=== PATIENT | female | born 1970 | race Caucasian/White ===

== ENCOUNTER 2018-12-08 14:51 | Inpatient (IN) | payer OTHER ==
[2018-12-08 17:15] VITALS: BMI 28.0
--- NOTE | 2018-12-08 18:30 | HP ---
CIWA Score Nausea/Vomitin Muscle Tremors: 1-None Visible, but [place] Anxiety: 3 Agitation: 2 Paroxysmal Sweats: 1-Minimal Palms Moist Orientation: 1-Uncertain about Date Tacttile Disturbances: 2-Mild Itch/Numbness/Burn Auditory Disturbances: 1-Very Mild Visual Disturbances: 2-Mild Sensitivity Headache: 1-Very Mild CIWA-Ar Total Score: 16 - Admission Criteria OASAS Guidelines: Admission for Medically Managed Detox: Requires at least one of the followin. CIWA greater than 12 2. Seizures within the past 24 hours 3. Delirium tremens within the past 24 hours 4. Hallucinations within the past 24 hours 5. Acute intervention needed for co occurring medical disorder 6. Acute intervention needed for co occurring psychiatric disorder 7. Severe withdrawal that cannot be handled at a lower level of care (continued vomiting, continued diarrhea, abnormal vital signs) requiring intravenous medication and/or fluids 8. Admission ROS [facility] Chief Complaint: Withdrawal symptoms Allergies/Adverse Reactions: Allergies Allergy/AdvReac Type Severity Reaction Status Date / Time aspirin AdvReac Vomiting Verified 12/08/18 17:05 ciprofloxacin AdvReac Hives Verified 12/08/18 17:06 gluten AdvReac Nausea Verified 12/08/18 17:06 History of Present Illness: 48 y.o. woman with an extensive history of alcohol dependence is here seeking detox. She reports she completed detox at other facilities with her last admission being in October, at [facility]. Pt. was at [facility] ER on 12/07/18 and was being evaluated for chest pain and hypertension. She was cleared and sent here this morning to be assessed for detox. Pt. provided discharge paperwork from her ER visit. The following labs and testing were performed at [facility]: HIV BMP Troponin HCG CBC w/ diff Chext xr: lungs unremarkable. No consolidation Labs to be scanned in patients chart. Exam Limitations: No Limitations - Ebola screening Have you traveled outside of the country in the last 21 days: No Have you had contact with anyone from an Ebola affected area: No - Review of Systems Constitutional: Chills, Diaphoresis, Changes in sleep EENT: reports: Tearing, Nose Congestion Respiratory: reports: Cough Cardiac: reports: Palpitations GI: reports: Diarrhea, Nausea : reports: No Symptoms Reported Musculoskeletal: reports: Back Pain Integumentary: reports: No Symptoms Reported Neuro: reports: Headache, Other (H/o syncope) Endocrine: reports: No Symptoms Reported Hematology: reports: Anemia Psychiatric: reports: Anxious, other (PTSD) Other Systems: Reviewed and Negative Patient History - Patient Medical History Hx Anemia: Yes Hx Asthma: No Hx Chronic Obstructive Pulmonary Disease (COPD): No Hx Cancer: No Hx Cardiac Disorders: No Hx Congestive Heart Failure: No Hx Hypertension: Yes (Prescribed Enalapril ) Hx Hypercholesterolemia: No Hx Pacemaker: No HX Cerebrovascular Accident: No Hx Seizures: No Hx Dementia: No Hx Diabetes: No Hx Gastrointestinal Disorders: No Hx Liver Disease: No Hx Genitourinary Disorders: No Hx Sexually Transmitted Disorders: No Hx Renal Disease (ESRD): No Hx Thyroid Disease: No Hx Human Immunodeficiency Virus (HIV): No Hx Hepatitis C: No Hx Depression: No Hx Suicide Attempt: No Hx Bipolar Disorder: No Hx Schizophrenia: No - Patient Surgical History Past Surgical History: No - PPD History Previous Implant?: Yes Documented Results: Negative w/o proof Results: CXR 12/07/18 WNL PPD to be Administered?: No - Reproductive History Patient is a Female of Child Bearing Age (11 -55 yrs old): Yes Last Menstrual Period: 11/17/18 Patient : No - Smoking Cessation Smoking history: Current every day smoker Have you smoked in the past 12 months: Yes Initiated information on smoking cessation: Yes 'Breaking Loose' booklet given: 12/08/18 - Substance & Tx. History Hx Alcohol Use: Yes Hx Substance Use: No Substance Use Type: Alcohol Hx Substance Use Treatment: Yes (Detox at [facility] 10/2018) - Substances abused Alcohol Substance route: Oral Frequency: Daily Amount used: 1 liter of vodka Age of first use: 17 Date of last use: 12/07/18 Family Disease History - Family Disease History Family Disease History: Diabetes: Brother, [place]: Grandparent, Father (ETOH DEPENDENCE), Other: Father, Mother (ETOH DEPENDENCE ) Admission Physical Exam BHS - Vital Signs Vital Signs: Vital Signs - 24 hr 12/08/18 17:09 Temperature 97.7 F Pulse Rate 62 Respiratory 20 Rate Blood Pressure 139/90 - Physical General Appearance: Yes: Irritable, Sweating, Anxious HEENTM: Yes: Hearing grossly Normal, Normocephalic, Normal Voice Respiratory: Yes: Lungs Clear, Normal Breath Sounds, No Respiratory Distress, No Accessory Muscle Use Neck: Yes: Within Normal Limits Breast: Yes: Breast Exam Deferred Cardiology: Yes: Regular Rhythm, Regular Rate Abdominal: Yes: Tenderness (RUQ) Genitourinary: Yes: Other (Denies an) Back: Yes: Normal Inspection Musculoskeletal: Yes: full range of Motion Extremities: Yes: Normal Capillary Refill, Normal Inspection, Normal Range of Motion, Non-Tender Neurological: Yes: Alert, Normal Mood/Affect, Normal Response Integumentary: Yes: Normal Color, Dry, Warm Lymphatic: Yes: Within Normal Limits - Diagnostic (1) Uncomplicated alcohol dependence Current Visit: Yes Status: Chronic (2) Nicotine dependence Current Visit: Yes Status: Chronic (3) Chronic pyelonephritis Current Visit: Yes Status: Chronic (4) Hypertension Current Visit: Yes Status: Chronic (5) Anemia Current Visit: Yes Status: Acute (6) High risk sexual behavior Current Visit: Yes Status: Acute Qualifiers: High risk sexual behavior type: heterosexual Qualified Code(s): Z72.51 - High risk heterosexual behavior (7) Celiac disease Current Visit: Yes Status: Chronic (8) History of syncope Current Visit: Yes Status: Acute Comment: ETOH induced Cleared for Admission S - Detox or Rehab [facility] Level of Care: Medically Managed Detox Regimen/Protocol: Valium Breathalyzer - Breathalyzer Breathalyzer: 0 Urine Drug Screen - Test Device Lot number: [id number] Expiration date: 09/10/20 - Control Is test valid?: Yes - Results Drug screen NEGATIVE: No Urine drug screen results: BZO-Benzodiazepines Inpatient Rehab Admission - Rehab Decision to Admit Inpatient rehab admission?: No
[2018-12-08] MEDS ORDERED: ONDANSETRON *ODT* 4 MG TABLET SL PRN (18:49)
[2018-12-08] MEDS ORDERED: MAGNESIUM HYDROX 2400MG/30ML ORAL SUSPENSION 30 ML CUP PO PRN (18:49)
[2018-12-08] MEDS ORDERED: MENTHOL/PHENOL 1 EACH UD MM PRN (18:49)
[2018-12-08] MEDS ORDERED: MAG HYDROX/AL HYDROX/SIMETH 30 ML UNIT-DOSE CUP PO PRN (18:49)
[2018-12-08] MEDS ORDERED: diazePAM 5 MG TABLET PO PRN (18:49)
[2018-12-08] MEDS ORDERED: MAGNESIUM CITRATE 300 ML BOTTLE PO PRN (18:49)
[2018-12-08] MEDS ORDERED: ACETAMINOPHEN 325 MG TABLET (FP) PO PRN ×2 (18:49)
[2018-12-08] MEDS ORDERED: diazePAM 5 MG TABLET PO ONE (18:49)
[2018-12-08] MEDS ORDERED: METHOCARBAMOL 500 MG TABLET PO PRN (18:49)
[2018-12-08] MEDS ORDERED: MELATONIN 5 MG TABLETS PO PRN (18:49)
[2018-12-08] MEDS ORDERED: DICYCLOMINE HCL 10 MG CAPSULE PO PRN (18:49)
[2018-12-08] MEDS ORDERED: hydrOXYzine PAMOATE 50 MG CAPSULE (FP) PO PRN (18:49)
[2018-12-08] MEDS: diazePAM 5 MG TABLET PO SCH (21:57)
[2018-12-08] MEDS: THIAMINE HCL 100 MG TABLET (FP) PO SCH (21:58)
[2018-12-08] MEDS ORDERED: cloNIDine HCL 0.1 MG TABLET PO ONE (22:59)
[2018-12-09] MEDS: diazePAM 5 MG TABLET PO SCH ×3 (05:54→22:23)
--- NOTE | 2018-12-09 10:34 | EKG ---
Test Reason : Blood Pressure : / mmHG Vent. Rate : 049 BPM Atrial Rate : 049 BPM P-R Int : 124 ms QRS Dur : 084 ms QT Int : 420 ms P-R-T Axes : 037 -01 036 degrees QTc Int : 379 ms SINUS BRADYCARDIA OTHERWISE NORMAL ECG NO PREVIOUS ECGS AVAILABLE Confirmed by WILFREDO NAYLOR, JOSUE ([id number]) on 12/09/2018 10:34:09 AM Referred By: SHEELA HORTON Confirmed By:JOSUE VILLALOBOS MD
[2018-12-09] MEDS: ENALAPRIL MALEATE 5 MG TABLET (FP) PO SCH (10:47)
[2018-12-09] MEDS: PRENATAL VITAMINS W/ FOLIC ACID TABLET (FP) PO SCH (10:47)
[2018-12-09 11:45] LABS: HEMOGLOBIN 11.3 GM/dL (10.7-15.3); MCH 30.9 pg (25.7-33.7); MCHC 33.4 g/dl (32.0-36.0); MEAN CELL VOLUME 92.4 fl (80-96); MEAN PLT VOLUME 8.2 fl (7.5-11.1); PLATELET COUNT 223 K/MM3 (134-434); RBC 3.68 M/mm3 (3.60-5.2); RDW 15.8 % (11.6-15.6); WHITE BLOOD COUNT 5.1 K/mm3 (4.0-10.0)
[2018-12-09 11:50] LABS: BILIRUBIN,TOTAL 0.4 mg/dL (0.2-1); BLOOD UREA NITROGEN 11.6 mg/dL (7-18); CALCIUM 8.6 mg/dL (8.5-10.1); CREATININE 0.7 mg/dL (0.55-1.3); TOT PROT 5.6 g/dl (6.4-8.2)
--- NOTE | 2018-12-09 12:51 | PN ---
S CIWA - CIWA Score Nausea/Vomitin-No Nausea/No Vomiting Muscle Tremors: 3 Anxiety: 3 Agitation: 3 Paroxysmal Sweats: 3 Orientation: 0-Oriented Tacttile Disturbances: 0-None Auditory Disturbances: 0-None Visual Disturbances: 0-None Headache: 0-None Present CIWA-Ar Total Score: 12 BHS Progress Note (SOAP) Subjective: sweats shakes interrupted sleep body aches sleepy Objective: 12/09/18 12:50 Vital Signs Temperature 97.8 F 12/09/18 09:47 Pulse Rate 66 12/09/18 09:47 Respiratory Rate 18 12/09/18 09:47 Blood Pressure 126/59 L 12/09/18 09:47 O2 Sat by Pulse Oximetry (%) Laboratory Tests 12/09/18 12/09/18 07:30 07:30 WBC 5.1 RBC 3.68 Hgb 11.3 Hct 34.0 MCV 92.4 MCH 30.9 MCHC 33.4 RDW 15.8 H Plt Count 223 MPV 8.2 Sodium 141 Potassium 4.0 Chloride 107 Carbon Dioxide 28 Anion Gap 6 L BUN 11.6 Creatinine 0.7 Est GFR (CKD-EPI)AfAm 119.58 Est GFR (CKD-EPI)NonAf 103.18 Random Glucose 158 H Calcium 8.6 Total Bilirubin 0.4 AST 16 ALT 33 Alkaline Phosphatase 39 L Total Protein 5.6 L Albumin 3.0 L labs noted aaox3 lying in bed no acute distress Assessment: 12/09/18 12:50 withdrawal sx Plan: continue detox increase fluids
--- NOTE | 2018-12-09 15:02 | CONSULT ---
[facility] Psychiatric Consult - Data Date of interview: 12/09/18 Admission source: [facility] Identifying data: Model Builder approached patient concerning psychiatric consultation. Patient refused to be seen by telegraphic typewriter repairer. Stated, "i'm ok i do not need to be seen. i'm only here for a few days and will go see my psychiatrist after i leave. i only have anxiety but i am fine. Thankyou." Psychiatric consultation refused.
[2018-12-09] MEDS: THIAMINE HCL 100 MG TABLET (FP) PO SCH (22:24)
[2018-12-10] MEDS: diazePAM 5 MG TABLET PO SCH ×2 (05:52→17:08)
[2018-12-10] MEDS: PRENATAL VITAMINS W/ FOLIC ACID TABLET (FP) PO SCH (10:06)
[2018-12-10] MEDS: ENALAPRIL MALEATE 5 MG TABLET (FP) PO SCH (10:06)
--- NOTE | 2018-12-10 13:01 | PN ---
S CIWA - CIWA Score Nausea/Vomitin-No Nausea/No Vomiting Muscle Tremors: 2 Anxiety: 1-Mildly Anxious Agitation: 2 Paroxysmal Sweats: 2 Orientation: 0-Oriented Tacttile Disturbances: 0-None Auditory Disturbances: 0-None Visual Disturbances: 0-None Headache: 0-None Present CIWA-Ar Total Score: 7 S Progress Note (SOAP) Subjective: agitation sweats interrupted sleep Objective: 12/10/18 13:00 Vital Signs Temperature 97.3 F L 12/10/18 12:42 Pulse Rate 58 L 12/10/18 12:42 Respiratory Rate 18 12/10/18 12:42 Blood Pressure 129/79 12/10/18 12:42 O2 Sat by Pulse Oximetry (%) Laboratory Tests 12/08/18 12/09/18 12/09/18 17:40 07:30 07:30 WBC RBC Hgb Hct MCV MCH MCHC RDW Plt Count MPV Sodium 141 Potassium 4.0 Chloride 107 Carbon Dioxide 28 Anion Gap 6 L BUN 11.6 Creatinine 0.7 Est GFR (CKD-EPI)AfAm 119.58 Est GFR (CKD-EPI)NonAf 103.18 Random Glucose 158 H Calcium 8.6 Total Bilirubin 0.4 AST 16 ALT 33 Alkaline Phosphatase 39 L Total Protein 5.6 L Albumin 3.0 L POC Urine HCG, Qual Negative RPR Titer Nonreactive Hep C Ab Diagnostic HIV 1&2 Ag/Ab, 4th Gen HIV 1&2 Antibody Screen HIV P24 Antigen 12/09/18 12/09/18 12/09/18 07:30 07:30 07:30 WBC 5.1 RBC 3.68 Hgb 11.3 Hct 34.0 MCV 92.4 MCH 30.9 MCHC 33.4 RDW 15.8 H Plt Count 223 MPV 8.2 Sodium Potassium Chloride Carbon Dioxide Anion Gap BUN Creatinine Est GFR (CKD-EPI)AfAm Est GFR (CKD-EPI)NonAf Random Glucose Calcium Total Bilirubin AST ALT Alkaline Phosphatase Total Protein Albumin POC Urine HCG, Qual RPR Titer Hep C Ab Diagnostic <0.1 HIV 1&2 Ag/Ab, 4th Gen HIV 1&2 Antibody Screen Cancelled HIV P24 Antigen Cancelled 12/09/18 10:00 WBC RBC Hgb Hct MCV MCH MCHC RDW Plt Count MPV Sodium Potassium Chloride Carbon Dioxide Anion Gap BUN Creatinine Est GFR (CKD-EPI)AfAm Est GFR (CKD-EPI)NonAf Random Glucose Calcium Total Bilirubin AST ALT Alkaline Phosphatase Total Protein Albumin POC Urine HCG, Qual RPR Titer Hep C Ab Diagnostic HIV 1&2 Ag/Ab, 4th Gen Non reactive HIV 1&2 Antibody Screen HIV P24 Antigen labs noted aaox3 ambulating no acute distress Assessment: 12/10/18 13:01 mild withdrawal sx Plan: continue detox increase fluids d/c in am
[2018-12-10] MEDS: THIAMINE HCL 100 MG TABLET (FP) PO SCH (22:09)
[2018-12-11] MEDS ORDERED: diazePAM 5 MG TABLET PO ONE (06:00)
[2018-12-11] MEDS: PRENATAL VITAMINS W/ FOLIC ACID TABLET (FP) PO SCH (11:13)
[2018-12-11] MEDS: ENALAPRIL MALEATE 5 MG TABLET (FP) PO SCH (11:30)
--- NOTE | 2018-12-11 11:56 | DS ---
[facility] Detox Discharge Summary Admission Date: 12/08/18 Discharge Date: 12/11/18 - History Present History: Alcohol Dependence Additional Comments: Pt is medically cleared and is discharged to [facility] rehab for continued care. Pt completed her detox protocol today and is awaiting for bed availability at [facility]. Pt is alert and oriented x3 and in no acute respiratory distress. Pertinent Past History: H/O HTN and alcohol use disorder. - Physical Exam Results Vital Signs: Vital Signs Temperature 97.5 F L 12/11/18 09:49 Pulse Rate 71 12/11/18 09:49 Respiratory Rate 17 12/11/18 09:49 Blood Pressure 127/83 12/11/18 09:49 O2 Sat by Pulse Oximetry (%) Lab Results WBC 5.1 K/mm3 (4.0-10.0) 12/09/18 07:30 RBC 3.68 M/mm3 (3.60-5.2) 12/09/18 07:30 Hgb 11.3 GM/dL (10.7-15.3) 12/09/18 07:30 Hct 34.0 % (32.4-45.2) 12/09/18 07:30 MCV 92.4 fl (80-96) 12/09/18 07:30 MCHC 33.4 g/dl (32.0-36.0) 12/09/18 07:30 RDW 15.8 % (11.6-15.6) H 12/09/18 07:30 Plt Count 223 K/MM3 (134-434) 12/09/18 07:30 Sodium 141 mmol/L (136-145) 12/09/18 07:30 Potassium 4.0 mmol/L (3.5-5.1) 12/09/18 07:30 Chloride 107 mmol/L (98-107) 12/09/18 07:30 Carbon Dioxide 28 mmol/L (21-32) 12/09/18 07:30 Anion Gap 6 MMOL/L (8-16) L 12/09/18 07:30 BUN 11.6 mg/dL (7-18) 12/09/18 07:30 Creatinine 0.7 mg/dL (0.55-1.3) 12/09/18 07:30 Random Glucose 158 mg/dL (74-106) H 12/09/18 07:30 Calcium 8.6 mg/dL (8.5-10.1) 12/09/18 07:30 Vital Signs 12/11/18 12/11/18 07:17 09:49 Temperature 97.7 F 97.5 F L Pulse Rate 62 71 Respiratory 17 17 Rate Blood Pressure 141/87 127/83 Labs noted. Pertinent Admission Physical Exam Findings: withdrawal symptoms. - Treatment Hospital Course: Detox Protocol Followed, Detoxed Safely, Responded well, Discharged Condition Good, Rehab Referral Accepted Patient has Accepted a Rehab Referral to: [facility] ([facility] room [address]) - Medication Discharge Medications: Ambulatory Orders Enalapril Maleate [Vasotec -] 5 mg PO DAILY 12/08/18 - Diagnosis (1) Anemia Status: Acute (2) History of syncope Status: Acute (3) Celiac disease Status: Chronic (4) Chronic pyelonephritis Status: Chronic (5) Hypertension Status: Chronic (6) Nicotine dependence Status: Chronic (7) Uncomplicated alcohol dependence Status: Chronic - AMA Did Patient Leave Against Medical Advice: No
[2018-12-11 13:36] VITALS: BP 119/60; PULSE 59; TEMP 97.2
== END 2018-12-11 14:03 | disposition other institution (70) | DRG 775 ==
LOC: YASAS 14:51 → Y6N 19:27
PROVIDERS: ADMIT Surgery; ATTEND Surgery
PROC: HZ2ZZZZ Detoxification Services for Substance Abuse Treatment (ICD-10-PCS; principal; 2018-12-08)
DX: F10.230 Alcohol dependence with withdrawal, uncomplicated (principal); F17.210 Nicotine dependence, cigarettes, uncomplicated; I10 Essential (primary) hypertension; N11.9 Chronic tubulo-interstitial nephritis, unspecified; D64.9 Anemia, unspecified; K90.0 Celiac disease; K86.81 Exocrine pancreatic insufficiency; Z72.51 High risk heterosexual behavior
CPT/HCPCS: 36415; 80053; 81025; 85027; 86593; 86803; 87389; 87491; 87591; 87661; 93005; 93010; J0735

== ENCOUNTER 2018-12-11 13:04 | Inpatient (IN) | payer OTHER ==
[2018-12-11] MEDS ORDERED: MAGNESIUM HYDROX 2400MG/30ML ORAL SUSPENSION 30 ML CUP PO PRN (14:33)
[2018-12-11] MEDS ORDERED: IBUPROFEN 400 MG TABLET (FP) PO PRN (14:33)
[2018-12-11] MEDS ORDERED: MAG HYDROX/AL HYDROX/SIMETH 30 ML UNIT-DOSE CUP PO PRN (14:33)
[2018-12-11] MEDS ORDERED: ACETAMINOPHEN 325 MG TABLET (FP) PO PRN (14:33)
--- NOTE | 2018-12-11 14:33 | HP ---
BRIANA NAYLOR Rehab Assess/Revision - Admission History Admitted to Rehab from: [facility] ([facility] Date of Admission to Rehab: 12/11/2018 - Vital signs Vital Signs: Vital Signs Period Temp Pulse Resp BP Sys/Smyth Pulse Ox Last 24 Hr 97.9 F 66 18 110/72 Vital Signs 12/11/18 14:19 Temperature 97.9 F Pulse Rate 66 Respiratory 18 Rate Blood Pressure 110/72 Vital Signs (72 hours) 12/11/18 14:19 Temperature 97.9 F Pulse Rate 66 Respiratory 18 Rate Blood Pressure 110/72 - Findings Detox History & Physical reviewed: Yes Concur with findings: Yes Inpatient Rehab Admission - Rehab Decision to Admit Inpatient rehab admission?: Yes - Initial Determination Are CD services needed?: Yes Free of communicable disease: Yes Not in need of hospitalization: Yes - Rehab Admission Criteria Previous failed treatment: Yes Poor recovery environment: Yes Comorbidities: Yes Lacks judgement: No Patient is meeting Inpatient Rehab admission criteria:: Yes
[2018-12-11] MEDS ORDERED: METHOCARBAMOL 500 MG TABLET PO PRN (14:42)
[2018-12-11] MEDS: hydrOXYzine PAMOATE 25 MG CAPSULE (FP) PO PRN (21:25)
[2018-12-11] MEDS: THIAMINE HCL 100 MG TABLET (FP) PO SCH (21:25)
[2018-12-11] MEDS ORDERED: MELATONIN 5 MG TABLETS PO PRN (22:00)
[2018-12-12] MEDS: PRENATAL VITAMINS W/ FOLIC ACID TABLET (FP) PO SCH (11:00)
[2018-12-12] MEDS: ENALAPRIL MALEATE 5 MG TABLET (FP) PO SCH (11:00)
[2018-12-12] MEDS ORDERED: ONDANSETRON *ODT* 4 MG TABLET SL PRN (11:20)
--- NOTE | 2018-12-12 11:22 | PN ---
BRIANA Progress Note Note: patient has nausea,no vomiting Vital Signs Temperature 97.6 F 12/12/18 07:24 Pulse Rate 65 12/12/18 09:41 Respiratory Rate 18 12/12/18 09:41 Blood Pressure 115/76 12/12/18 09:41 O2 Sat by Pulse Oximetry (%) zofran 4 mgs sl prn q 6hrs ordered, close monitoring
[2018-12-12] MEDS: hydrOXYzine PAMOATE 25 MG CAPSULE (FP) PO PRN (18:02)
[2018-12-12] MEDS: THIAMINE HCL 100 MG TABLET (FP) PO SCH (21:29)
[2018-12-13] MEDS: ENALAPRIL MALEATE 5 MG TABLET (FP) PO SCH (10:43)
[2018-12-13] MEDS: PRENATAL VITAMINS W/ FOLIC ACID TABLET (FP) PO SCH (10:43)
[2018-12-13] MEDS: hydrOXYzine PAMOATE 25 MG CAPSULE (FP) PO PRN (19:58)
[2018-12-13] MEDS: THIAMINE HCL 100 MG TABLET (FP) PO SCH (21:36)
[2018-12-14] MEDS: ENALAPRIL MALEATE 5 MG TABLET (FP) PO SCH (10:29)
[2018-12-14] MEDS: PRENATAL VITAMINS W/ FOLIC ACID TABLET (FP) PO SCH (10:29)
--- NOTE | 2018-12-14 11:36 | PN ---
[facility] Progress Note Note: initial glucose 158,will do fasting glucose in am
[2018-12-14] MEDS ORDERED: diphenhydrAMINE HCL 25 MG CAPSULE (FP) PO PRN (13:16)
[2018-12-14] MEDS: diphenhydrAMINE HCL 25 MG CAPSULE (FP) PO PRN (17:38)
[2018-12-14] MEDS: CHLORHEXIDINE GLUCONATE 0.12% 15ML CUP MM SCH (21:23)
[2018-12-14] MEDS: THIAMINE HCL 100 MG TABLET (FP) PO SCH (21:24)
[2018-12-15] MEDS: PSYLLIUM 5.85 GM PACKET PO SCH (09:14)
[2018-12-15] MEDS: CHLORHEXIDINE GLUCONATE 0.12% 15ML CUP MM SCH ×2 (09:17→21:27)
[2018-12-15] MEDS: PRENATAL VITAMINS W/ FOLIC ACID TABLET (FP) PO SCH (10:53)
[2018-12-15] MEDS: ENALAPRIL MALEATE 5 MG TABLET (FP) PO SCH (10:54)
[2018-12-15] MEDS ORDERED: PT OWN MED DRAWER 7, Y5N ONE ×5 (13:31→22:54)
[2018-12-15] MEDS: THIAMINE HCL 100 MG TABLET (FP) PO SCH (21:26)
[2018-12-15] MEDS: diphenhydrAMINE HCL 25 MG CAPSULE (FP) PO PRN (21:26)
[2018-12-16 07:07] VITALS: TEMP 97.4
[2018-12-16] MEDS: ENALAPRIL MALEATE 5 MG TABLET (FP) PO SCH (09:13)
[2018-12-16] MEDS: PRENATAL VITAMINS W/ FOLIC ACID TABLET (FP) PO SCH (09:13)
[2018-12-16] MEDS: CHLORHEXIDINE GLUCONATE 0.12% 15ML CUP MM SCH (09:14)
[2018-12-16] MEDS: PSYLLIUM 5.85 GM PACKET PO SCH (09:14)
[2018-12-16 09:21] VITALS: BP 144/93; PULSE 58
--- NOTE | 2018-12-16 10:07 | DS ---
[facility] Rehab Discharge Summary - [facility] Rehab Discharge Summary Admission Date: 12/11/18 Discharge Date: 12/16/18 - History Present History: Alcohol dependence Pertinent Past History: 48 y.o. woman with an extensive history of alcohol dependence. Has had a previous detox at [facility] in the past. - Discharge Physical Exam Vital Signs: Vital Signs Temperature 97.4 F L 12/16/18 07:05 Pulse Rate 58 L 12/16/18 09:21 Respiratory Rate 18 12/16/18 09:21 Blood Pressure 144/93 12/16/18 09:21 O2 Sat by Pulse Oximetry (%) Pertinent Admission Physical Exam Findings: General Appearance: no apparent distres HEENTM:Normocephalic, Normal Voice Respiratory:Lungs Clear, Cardiology: s1 s2 audible Abdominal: +BS, soft, non-tender Musculoskeletal: full range of Motion, full weight bearing full ROM Neurological: Cn 2-12 intact, muscle strength equal 5/5 Integumentary color consistent throughout trunk and extremities, warm dry, good turgor - Treatment Discharge Condition: Outpatient referral accepted Hospital Course: Patient has not completed rehab treatment. She has refused treatment for symptoms of withdrawal, e.g. nausea. She feels at this time rehab is not working for her. She will seek outpatient treatment at [place] [id number] on her own. She also states that she will see her PCP for treatment of withdrawal symptoms. She is medically stable at this time. - Medication Discharge Medications: Ambulatory Orders Enalapril Maleate [Vasotec -] 5 mg PO DAILY 12/08/18 - Medication-Assisted Treatment (MAT) Medication-Assisted Treatment (MAT): No - Discharge Instructions Diet, activity, other medical instructions: Diet:as tolerated Activity: as tolerated Other medical instructions: Strongly encouraged to follow up with aftercare plans. Strongly encouraged to make an appointment with PCP. - Diagnosis (1) Uncomplicated alcohol dependence Current Visit: No Status: Chronic - Follow-up Referral Minutes to complete discharge: 20
== END 2018-12-16 11:00 | disposition home or self-care (01) | DRG 772 ==
LOC: YASAS 13:04 → Y3E 13:05
PROVIDERS: ADMIT Neuromusculoskeletal Medicine & OMM; ATTEND Neuromusculoskeletal Medicine & OMM
PROC: HZ42ZZZ Group Counseling for Substance Abuse Treatment, Cognitive-Behavioral (ICD-10-PCS; principal; 2018-12-11)
DX: F10.20 Alcohol dependence, uncomplicated (principal); F17.210 Nicotine dependence, cigarettes, uncomplicated; I10 Essential (primary) hypertension; Z88.6 Allergy status to analgesic agent
CPT/HCPCS: 36415; 82947; 82962

== ENCOUNTER 2019-01-26 10:36 | Inpatient (IN) | payer OTHER ==
[2019-01-26 11:17] VITALS: BMI 29.0
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
[2019-01-26] MEDS ORDERED: METHOCARBAMOL 500 MG TABLET PO PRN (12:39)
[2019-01-26] MEDS ORDERED: MAGNESIUM CITRATE 300 ML BOTTLE PO PRN (12:39)
[2019-01-26] MEDS ORDERED: MENTHOL/PHENOL 1 EACH UD MM PRN (12:39)
[2019-01-26] MEDS ORDERED: MELATONIN 5 MG TABLETS PO PRN (12:39)
[2019-01-26] MEDS ORDERED: hydrOXYzine PAMOATE 25 MG CAPSULE (FP) PO PRN (12:39)
[2019-01-26] MEDS ORDERED: IBUPROFEN 400 MG TABLET (FP) PO PRN (12:39)
[2019-01-26] MEDS ORDERED: MAG HYDROX/AL HYDROX/SIMETH 30 ML UNIT-DOSE CUP PO PRN (12:39)
[2019-01-26] MEDS ORDERED: MAGNESIUM HYDROX 2400MG/30ML ORAL SUSPENSION 30 ML CUP PO PRN (12:39)
[2019-01-26] MEDS ORDERED: BISMUTH SUBSALICYLATE 524 MG/30 ML UD PO PRN (12:39)
[2019-01-26] MEDS ORDERED: ACETAMINOPHEN 325 MG TABLET (FP) PO PRN ×2 (12:39)
[2019-01-26] MEDS: diazePAM 5 MG TABLET PO SCH ×2 (14:49→22:06)
[2019-01-26 17:03] LABS: HEMATOCRIT 37.8 % (32.4-45.2); HEMOGLOBIN 12.4 GM/dL (10.7-15.3); MCH 30.5 pg (25.7-33.7); MCHC 32.9 g/dl (32.0-36.0); MEAN CELL VOLUME 92.7 fl (80-96); MEAN PLT VOLUME 8.4 fl (7.5-11.1); PLATELET COUNT 258 K/MM3 (134-434); RBC 4.08 M/mm3 (3.60-5.2); WHITE BLOOD COUNT 6.6 K/mm3 (4.0-10.0)
[2019-01-26 17:09] LABS: ALBUMIN 3.8 g/dl (3.4-5.0); BILIRUBIN,TOTAL 0.2 mg/dL (0.2-1); BLOOD UREA NITROGEN 13.4 mg/dL (7-18); CALCIUM 9.1 mg/dL (8.5-10.1); CREATININE 0.6 mg/dL (0.55-1.3); POTASSIUM 3.9 mmol/L (3.5-5.1); TOT PROT 6.9 g/dl (6.4-8.2)
[2019-01-26] MEDS: diazePAM 5 MG TABLET PO PRN (20:16)
[2019-01-26] MEDS: THIAMINE HCL 100 MG TABLET (FP) PO SCH (22:06)
[2019-01-26] MEDS: BACITRACIN 15 GM TUBE TOPICAL OINTMENT TP SCH (22:23)
[2019-01-27] MEDS: diazePAM 5 MG TABLET PO SCH ×3 (06:04→22:18)
[2019-01-27] MEDS: BACITRACIN 15 GM TUBE TOPICAL OINTMENT TP SCH ×2 (11:00→22:21)
[2019-01-27] MEDS: ENALAPRIL MALEATE 5 MG TABLET (FP) PO SCH (11:00)
[2019-01-27] MEDS: NICOTINE 14 MG/24 HOURS TOPICAL PATCH TD SCH (11:00)
[2019-01-27] MEDS: PRENATAL VITAMINS W/ FOLIC ACID TABLET (FP) PO SCH (11:00)
[2019-01-27] MEDS ORDERED: ONDANSETRON *ODT* 4 MG TABLET SL PRN (11:36)
--- NOTE | 2019-01-27 11:36 | PN ---
S CIWA - CIWA Score Nausea/Vomitin-Mild Nausea/No Vomiting Muscle Tremors: 3 Anxiety: 2 Agitation: 3 Paroxysmal Sweats: 3 Orientation: 0-Oriented Tacttile Disturbances: 0-None Auditory Disturbances: 0-None Visual Disturbances: 0-None Headache: 1-Very Mild CIWA-Ar Total Score: 13 BHS Progress Note (SOAP) Subjective: nausea sweats body aches shakes restless headache Objective: 01/27/19 11:35 Vital Signs Temperature 97.5 F L 01/27/19 10:00 Pulse Rate 59 L 01/27/19 10:00 Respiratory Rate 18 01/27/19 10:00 Blood Pressure 138/74 01/27/19 10:00 O2 Sat by Pulse Oximetry (%) Laboratory Tests 01/26/19 01/26/19 01/26/19 12:04 13:05 13:05 WBC 6.6 RBC 4.08 Hgb 12.4 Hct 37.8 MCV 92.7 MCH 30.5 MCHC 32.9 RDW 15.0 Plt Count 258 MPV 8.4 Sodium 139 Potassium 3.9 Chloride 106 Carbon Dioxide 25 Anion Gap 7 L BUN 13.4 Creatinine 0.6 Est GFR (CKD-EPI)AfAm 125.80 Est GFR (CKD-EPI)NonAf 108.54 Random Glucose 120 H Calcium 9.1 Total Bilirubin 0.2 AST 17 ALT 35 Alkaline Phosphatase 58 Total Protein 6.9 Albumin 3.8 POC Urine HCG, Qual Negative labs noted aaox3 ambulating no acute distress Assessment: 01/27/19 11:35 withdrawal sx Plan: continue detox increase fluids zofran sl prn motrin/tylenol prn
[2019-01-27] MEDS: THIAMINE HCL 100 MG TABLET (FP) PO SCH (22:18)
[2019-01-27] MEDS: diazePAM 5 MG TABLET PO PRN (23:53)
[2019-01-28] MEDS: diazePAM 5 MG TABLET PO PRN (04:12)
[2019-01-28] MEDS: diazePAM 5 MG TABLET PO SCH ×2 (06:42→17:39)
[2019-01-28] MEDS: ENALAPRIL MALEATE 5 MG TABLET (FP) PO SCH (10:27)
[2019-01-28] MEDS: PRENATAL VITAMINS W/ FOLIC ACID TABLET (FP) PO SCH (10:27)
[2019-01-28] MEDS: NICOTINE 14 MG/24 HOURS TOPICAL PATCH TD SCH (10:27)
[2019-01-28] MEDS: BACITRACIN 15 GM TUBE TOPICAL OINTMENT TP SCH ×2 (10:27→22:36)
--- NOTE | 2019-01-28 14:01 | PN ---
S CIWA - CIWA Score Nausea/Vomitin-No Nausea/No Vomiting Muscle Tremors: 3 Anxiety: 3 Agitation: 2 Paroxysmal Sweats: 2 Orientation: 0-Oriented Tacttile Disturbances: 0-None Auditory Disturbances: 0-None Visual Disturbances: 0-None Headache: 0-None Present CIWA-Ar Total Score: 10 BHS Progress Note (SOAP) Subjective: sweats shakes interrupted sleep body aches Objective: 01/28/19 14:00 Vital Signs Temperature 96.3 F L 01/28/19 09:40 Pulse Rate 67 01/28/19 09:40 Respiratory Rate 20 01/28/19 09:40 Blood Pressure 123/79 01/28/19 09:40 O2 Sat by Pulse Oximetry (%) Laboratory Tests 01/26/19 01/26/19 01/26/19 12:04 13:05 13:05 WBC 6.6 RBC 4.08 Hgb 12.4 Hct 37.8 MCV 92.7 MCH 30.5 MCHC 32.9 RDW 15.0 Plt Count 258 MPV 8.4 Sodium 139 Potassium 3.9 Chloride 106 Carbon Dioxide 25 Anion Gap 7 L BUN 13.4 Creatinine 0.6 Est GFR (CKD-EPI)AfAm 125.80 Est GFR (CKD-EPI)NonAf 108.54 Random Glucose 120 H Calcium 9.1 Total Bilirubin 0.2 AST 17 ALT 35 Alkaline Phosphatase 58 Total Protein 6.9 Albumin 3.8 POC Urine HCG, Qual Negative RPR Titer 01/26/19 13:05 WBC RBC Hgb Hct MCV MCH MCHC RDW Plt Count MPV Sodium Potassium Chloride Carbon Dioxide Anion Gap BUN Creatinine Est GFR (CKD-EPI)AfAm Est GFR (CKD-EPI)NonAf Random Glucose Calcium Total Bilirubin AST ALT Alkaline Phosphatase Total Protein Albumin POC Urine HCG, Qual RPR Titer Nonreactive labs pending aaox3 ambulating no acute distress Assessment: 01/28/19 14:01 withdrawal sx Plan: continue detox increase fluids
[2019-01-28] MEDS: THIAMINE HCL 100 MG TABLET (FP) PO SCH (22:36)
[2019-01-29] MEDS ORDERED: diazePAM 5 MG TABLET PO ONE (06:00)
[2019-01-29] MEDS: ENALAPRIL MALEATE 5 MG TABLET (FP) PO SCH (10:19)
[2019-01-29] MEDS: NICOTINE 14 MG/24 HOURS TOPICAL PATCH TD SCH (10:19)
[2019-01-29] MEDS: PRENATAL VITAMINS W/ FOLIC ACID TABLET (FP) PO SCH (10:19)
[2019-01-29] MEDS: BACITRACIN 15 GM TUBE TOPICAL OINTMENT TP SCH (10:19)
--- NOTE | 2019-01-29 14:39 | PN ---
S CIWA - CIWA Score Nausea/Vomitin-No Nausea/No Vomiting Muscle Tremors: None Anxiety: 3 Agitation: 0-Normal Activity Paroxysmal Sweats: 3 Orientation: 0-Oriented Tacttile Disturbances: 0-None Auditory Disturbances: 0-None Visual Disturbances: 0-None Headache: 0-None Present CIWA-Ar Total Score: 6 BHS Progress Note (SOAP) Subjective: c/o anxiety, mild shakes, and sweats. Objective: 01/29/19 14:33 Vital Signs 01/29/19 01/29/19 09:48 12:35 Temperature 97.2 F L 98.1 F Pulse Rate 64 57 L Respiratory 16 16 Rate Blood Pressure 125/77 123/68 Laboratory Last Values WBC 6.6 K/mm3 (4.0-10.0) 01/26/19 13:05 RBC 4.08 M/mm3 (3.60-5.2) 01/26/19 13:05 Hgb 12.4 GM/dL (10.7-15.3) 01/26/19 13:05 Hct 37.8 % (32.4-45.2) 01/26/19 13:05 MCV 92.7 fl (80-96) 01/26/19 13:05 MCH 30.5 pg (25.7-33.7) 01/26/19 13:05 MCHC 32.9 g/dl (32.0-36.0) 01/26/19 13:05 RDW 15.0 % (11.6-15.6) 01/26/19 13:05 Plt Count 258 K/MM3 (134-434) 01/26/19 13:05 MPV 8.4 fl (7.5-11.1) 01/26/19 13:05 Sodium 139 mmol/L (136-145) 01/26/19 13:05 Potassium 3.9 mmol/L (3.5-5.1) 01/26/19 13:05 Chloride 106 mmol/L (98-107) 01/26/19 13:05 Carbon Dioxide 25 mmol/L (21-32) 01/26/19 13:05 Anion Gap 7 MMOL/L (8-16) L 01/26/19 13:05 BUN 13.4 mg/dL (7-18) 01/26/19 13:05 Creatinine 0.6 mg/dL (0.55-1.3) 01/26/19 13:05 Est GFR (CKD-EPI)AfAm 125.80 01/26/19 13:05 Est GFR (CKD-EPI)NonAf 108.54 01/26/19 13:05 Random Glucose 120 mg/dL (74-106) H 01/26/19 13:05 Calcium 9.1 mg/dL (8.5-10.1) 01/26/19 13:05 Total Bilirubin 0.2 mg/dL (0.2-1) 01/26/19 13:05 AST 17 U/L (15-37) 01/26/19 13:05 ALT 35 U/L (13-61) 01/26/19 13:05 Alkaline Phosphatase 58 U/L (45-117) 01/26/19 13:05 Total Protein 6.9 g/dl (6.4-8.2) 01/26/19 13:05 Albumin 3.8 g/dl (3.4-5.0) 01/26/19 13:05 POC Urine HCG, Qual Negative 01/26/19 12:04 RPR Titer Nonreactive (NONREACTIVE) 01/26/19 13:05 Labs noted. Assessment: 01/29/19 14:33 AOX3, in no acute respiratory distress. Full ROM, ambulating in the unit. Withdrawal symptoms. Pt has completed her detox protocol today and awaiting for rehab bed([facility]). Pt expresses desire to continue with rehab. Explained to pt that if bed is not available by tomorrow, she has to go home and come back to be admitted to rehab. Meanwhile she can still request for her prn medications. Pt verbalized understanding of the information given. Case discussed with counselor Boby. 01/29/19 14:34 Plan: continue prn anxiety meds. D/C in AM to [facility] when bed becomes available. If no bed available, discharge home to come back to be admitted to rehab.
[2019-01-30] MEDS: BACITRACIN 15 GM TUBE TOPICAL OINTMENT TP SCH ×2 (00:10→11:45)
[2019-01-30] MEDS: THIAMINE HCL 100 MG TABLET (FP) PO SCH (00:10)
[2019-01-30 06:28] VITALS: TEMP 97.7
[2019-01-30 09:48] VITALS: BP 145/78; PULSE 71
[2019-01-30] MEDS: NICOTINE 14 MG/24 HOURS TOPICAL PATCH TD SCH (11:45)
[2019-01-30] MEDS: ENALAPRIL MALEATE 5 MG TABLET (FP) PO SCH (11:45)
[2019-01-30] MEDS: PRENATAL VITAMINS W/ FOLIC ACID TABLET (FP) PO SCH (11:45)
--- NOTE | 2019-01-30 16:41 | DS ---
[facility] Detox Discharge Summary Admission Date: 01/26/19 Discharge Date: 01/30/19 - History Present History: Alcohol Dependence Additional Comments: Patient completed detox successfully and discharged safely. Instructed to follow up with PCP within 1 week. Pertinent Past History: Anemia HTN Alcohol dependence Cannabis use disorder Cocaine use disorder Nicotine dependence - Physical Exam Results Vital Signs: Vital Signs Temperature 97.7 F 01/30/19 09:47 Pulse Rate 71 01/30/19 09:47 Respiratory Rate 18 01/30/19 09:47 Blood Pressure 145/78 01/30/19 09:47 O2 Sat by Pulse Oximetry (%) Pertinent Admission Physical Exam Findings: Withdrawal sxs Laboratory Tests 01/26/19 01/26/19 01/26/19 12:04 13:05 13:05 WBC 6.6 RBC 4.08 Hgb 12.4 Hct 37.8 MCV 92.7 MCH 30.5 MCHC 32.9 RDW 15.0 Plt Count 258 MPV 8.4 Sodium 139 Potassium 3.9 Chloride 106 Carbon Dioxide 25 Anion Gap 7 L BUN 13.4 Creatinine 0.6 Est GFR (CKD-EPI)AfAm 125.80 Est GFR (CKD-EPI)NonAf 108.54 Random Glucose 120 H Calcium 9.1 Total Bilirubin 0.2 AST 17 ALT 35 Alkaline Phosphatase 58 Total Protein 6.9 Albumin 3.8 POC Urine HCG, Qual Negative RPR Titer 01/26/19 13:05 WBC RBC Hgb Hct MCV MCH MCHC RDW Plt Count MPV Sodium Potassium Chloride Carbon Dioxide Anion Gap BUN Creatinine Est GFR (CKD-EPI)AfAm Est GFR (CKD-EPI)NonAf Random Glucose Calcium Total Bilirubin AST ALT Alkaline Phosphatase Total Protein Albumin POC Urine HCG, Qual RPR Titer Nonreactive Labs reviewed: glucose 120mg/dl, patient denies dm, could be r/t withdrawal, follow up with PCP for further monitoring - Treatment Hospital Course: Detox Protocol Followed, Detoxed Safely, Responded well, Discharged Condition Good - Medication Discharge Medications: Ambulatory Orders Enalapril Maleate [Vasotec -] 5 mg PO DAILY 12/08/18 - Diagnosis (1) Cocaine use disorder Status: Chronic (2) Cannabis use disorder, mild, abuse Status: Chronic (3) Alcohol dependence with withdrawal Status: Acute (4) Anemia Status: Chronic (5) Hypertension Status: Chronic (6) Nicotine dependence Status: Chronic (7) Hyperglycemia Status: Acute - AMA Did Patient Leave Against Medical Advice: No (Follow up with PCP within 1 week)
== END 2019-01-30 13:50 | disposition home or self-care (01) | DRG 774 ==
LOC: YASAS 10:36 → Y6N 12:58
PROVIDERS: ADMIT Allergy & Immunology; ATTEND Allergy & Immunology
PROC: HZ2ZZZZ Detoxification Services for Substance Abuse Treatment (ICD-10-PCS; principal; 2019-01-26)
DX: F10.230 Alcohol dependence with withdrawal, uncomplicated (principal); F14.10 Cocaine abuse, uncomplicated; F12.10 Cannabis abuse, uncomplicated; F17.210 Nicotine dependence, cigarettes, uncomplicated; I10 Essential (primary) hypertension; D64.9 Anemia, unspecified; R73.9 Hyperglycemia, unspecified; Z88.6 Allergy status to analgesic agent; Z88.1 Allergy status to other antibiotic agents; Z91.02 Food additives allergy status
CPT/HCPCS: 36415; 80053; 81025; 85027; 86593

== ENCOUNTER 2019-03-01 15:29 | Inpatient (IN) | payer OTHER ==
[2019-03-01 17:06] VITALS: BMI 27.4
--- NOTE | 2019-03-01 17:41 | HP ---
CIWA Score Nausea/Vomitin Muscle Tremors: 1-None Visible, but [place] Anxiety: 2 Agitation: 1-Slight > Activity Paroxysmal Sweats: No Perspiration Orientation: 0-Oriented Tacttile Disturbances: 2-Mild Itch/Numbness/Burn Auditory Disturbances: 2-Mild Harshness/Frighten Visual Disturbances: 2-Mild Sensitivity Headache: 3-Moderate CIWA-Ar Total Score: 15 - Admission Criteria OASAS Guidelines: Admission for Medically Managed Detox: Requires at least one of the followin. CIWA greater than 12 2. Seizures within the past 24 hours 3. Delirium tremens within the past 24 hours 4. Hallucinations within the past 24 hours 5. Acute intervention needed for co occurring medical disorder 6. Acute intervention needed for co occurring psychiatric disorder 7. Severe withdrawal that cannot be handled at a lower level of care (continued vomiting, continued diarrhea, abnormal vital signs) requiring intravenous medication and/or fluids 8. Admitting History and Physical - Past Medical History ...LMP: 01/10/19 - Smoking History Smoking history: Current every day smoker Have you smoked in the past 12 months: Yes Aproximately how many cigarettes per day: 10 - Alcohol/Substance Use Hx Alcohol Use: Yes Admission [facility] Allergies/Adverse Reactions: Allergies Allergy/AdvReac Type Severity Reaction Status Date / Time aspirin Allergy Vomiting Verified 03/01/19 18:13 ciprofloxacin Allergy Hives Verified 03/01/19 18:13 gluten Allergy Nausea Verified 03/01/19 18:13 lactose AdvReac Uncoded 03/01/19 18:13 History of Present Illness: pt here requesting detox from etoh use , reports 1 l vodka/ day , latest use yesterday , + blackout and fall , was found by passer by who called EMS , pt taken to [facility] , CT report + nasal frx , left inferior orbital floor chronic frx pt agreeable to f/up w/ ophtalmology as outpt . Pt sates had fall 2 years ago and was told she had a nasal frx and orbital frx then , no f/up . reports daily use x 2 years, denies seizures, + multiple falls pmhx : HDL lmp 02/08/19 Exam Limitations: Clinical Condition - Ebola screening Have you traveled outside of the country in the last 21 days: No Have you had contact with anyone from an Ebola affected area: No Do you have a fever: No - Review of Systems Constitutional: No Symptoms Reported EENT: reports: See HPI Respiratory: reports: No Symptoms reported Cardiac: reports: No Symptoms Reported GI: reports: Constipated, Nausea : reports: No Symptoms Reported Musculoskeletal: reports: Muscle Pain Integumentary: reports: See HPI, Bruising (left eye) Neuro: reports: See HPI, Headache Endocrine: reports: No Symptoms Reported Psychiatric: reports: Orientated x3 Patient History - Patient Medical History Hx Anemia: Yes Hx Asthma: No Hx Chronic Obstructive Pulmonary Disease (COPD): No Hx Cancer: No Hx Cardiac Disorders: No Hx Congestive Heart Failure: No Hx Hypertension: No Hx Hypercholesterolemia: No Hx Pacemaker: No HX Cerebrovascular Accident: No Hx Seizures: No Hx Dementia: No Hx Diabetes: No Hx Gastrointestinal Disorders: No Hx Liver Disease: No Hx Genitourinary Disorders: No Hx Sexually Transmitted Disorders: No Hx Renal Disease (ESRD): No Hx Thyroid Disease: No Hx Human Immunodeficiency Virus (HIV): No Hx Hepatitis C: No Hx Depression: No Hx Suicide Attempt: No Hx Bipolar Disorder: No Hx Schizophrenia: No - Patient Surgical History Past Surgical History: Yes Hx Neurologic Surgery: No Hx Cataract Extraction: No Hx Cardiac Surgery: No Hx Lung Surgery: No Hx Breast Surgery: No Hx Breast Biopsy: No Hx Abdominal Surgery: No Hx Appendectomy: Yes Hx Cholecystectomy: No Hx Genitourinary Surgery: No Hx Section: No Hx Orthopedic Surgery: No Other Surgical History: Lymph node removal (left cervical) - PPD History Results: CXR 12/07/18 WNL - Reproductive History Last Menstrual Period: 02/08/19 - Smoking Cessation Smoking history: Current every day smoker Have you smoked in the past 12 months: Yes Aproximately how many cigarettes per day: 10 Hx Chewing Tobacco Use: No Initiated information on smoking cessation: Yes 'Breaking Loose' booklet given: 03/01/19 - Substances abused Alcohol Substance route: Oral Frequency: Daily Amount used: 1 liter of vodka Age of first use: 17 Date of last use: 02/28/19 Admission Physical Exam BHS - Vital Signs Vital Signs: Vital Signs - 24 hr 03/01/19 16:33 Temperature 98.3 F Pulse Rate 88 Respiratory 16 Rate Blood Pressure 128/75 - Physical General Appearance: Yes: Mild Distress HEENTM: Yes: Hearing grossly Normal, Normal Voice, Other (left periorbital abrasion , ecchymosis left eye) Respiratory: Yes: Lungs Clear, Normal Breath Sounds, No Respiratory Distress, No Accessory Muscle Use Neck: Yes: No masses,lesions,Nodules, Trachea in good position Cardiology: Yes: Regular Rhythm, Regular Rate, S1, S2 Abdominal: Yes: Non Tender, Soft, Protuberent Musculoskeletal: Yes: full range of Motion, Gait Steady Extremities: Yes: Normal Range of Motion, Non-Tender Neurological: Yes: Fully Oriented, Alert, Motor Strength 5/5, Depressed Affect Integumentary: Yes: Warm, Other (superficial abrasion left zygoma and left frontal large allyson-orbital ecchymosis left eye) - Diagnostic (1) Alcohol dependence with withdrawal Current Visit: Yes Status: Chronic Qualifiers: Complication of substance-induced condition: uncomplicated Qualified Code(s ): F10.230 - Alcohol dependence with withdrawal, uncomplicated Breathalyzer - Breathalyzer Breathalyzer: 0 (last use 01/24/19) Urine Drug Screen - Test Device Lot number: [id number] Expiration date: 09/10/20 - Control Is test valid?: Yes - Results Drug screen NEGATIVE: No Urine drug screen results: BZO-Benzodiazepines Inpatient Rehab Admission - Rehab Decision to Admit Inpatient rehab admission?: No
[2019-03-01] MEDS ORDERED: MAGNESIUM CITRATE 300 ML BOTTLE PO PRN (17:56)
[2019-03-01] MEDS ORDERED: MELATONIN 5 MG TABLETS PO PRN (17:56)
[2019-03-01] MEDS ORDERED: METHOCARBAMOL 500 MG TABLET PO PRN (17:56)
[2019-03-01] MEDS ORDERED: hydrOXYzine PAMOATE 25 MG CAPSULE (FP) PO PRN (17:56)
[2019-03-01] MEDS ORDERED: MAG HYDROX/AL HYDROX/SIMETH 30 ML UNIT-DOSE CUP PO PRN (17:56)
[2019-03-01] MEDS ORDERED: MENTHOL/PHENOL 1 EACH UD MM PRN (17:56)
[2019-03-01] MEDS ORDERED: MAGNESIUM HYDROX 2400MG/30ML ORAL SUSPENSION 30 ML CUP PO PRN (17:56)
[2019-03-01] MEDS ORDERED: ACETAMINOPHEN 325 MG TABLET (FP) PO PRN ×2 (17:56)
[2019-03-01] MEDS: diazePAM 5 MG TABLET PO PRN (18:49)
[2019-03-01] MEDS: THIAMINE HCL 100 MG TABLET (FP) PO SCH (21:03)
[2019-03-01] MEDS: diazePAM 5 MG TABLET PO SCH (21:04)
[2019-03-01] MEDS: PSYLLIUM 5.85 GM PACKET PO SCH ×2 (22:46→22:52)
[2019-03-01] MEDS: BACITRACIN/POLYMYXIN B SULFATE 15 GM TUBE TP SCH ×2 (22:46→22:52)
[2019-03-01] MEDS: CHLORHEXIDINE GLUCONATE 0.12% 15ML CUP MM SCH ×2 (22:46→22:52)
[2019-03-02] MEDS: diazePAM 5 MG TABLET PO SCH ×3 (06:22→22:26)
[2019-03-02] MEDS: PSYLLIUM 5.85 GM PACKET PO SCH ×3 (06:23→20:16)
[2019-03-02] MEDS: PRENATAL VITAMINS W/ FOLIC ACID TABLET (FP) PO SCH (10:30)
[2019-03-02] MEDS: CHLORHEXIDINE GLUCONATE 118 ML MOUTHWASH MM SCH ×2 (10:30→22:26)
[2019-03-02] MEDS: BACITRACIN/POLYMYXIN B SULFATE 15 GM TUBE TP SCH ×2 (10:30→22:26)
[2019-03-02] MEDS: diazePAM 5 MG TABLET PO PRN ×2 (10:32→17:37)
--- NOTE | 2019-03-02 11:15 | PN ---
[facility] CIWA - CIWA Score Nausea/Vomitin-No Nausea/No Vomiting Muscle Tremors: 3 Anxiety: 3 Agitation: 3 Paroxysmal Sweats: 3 Orientation: 0-Oriented Tacttile Disturbances: 0-None Auditory Disturbances: 0-None Visual Disturbances: 0-None Headache: 0-None Present CIWA-Ar Total Score: 12 [facility]HS Progress Note (SOAP) Subjective: sweats chills body aches interrupted sleep shakes Objective: 03/02/19 11:13 Vital Signs Temperature 96.8 F L 03/02/19 09:38 Pulse Rate 81 03/02/19 09:38 Respiratory Rate 16 03/02/19 09:38 Blood Pressure 139/87 03/02/19 09:38 O2 Sat by Pulse Oximetry (%) Laboratory Tests 03/01/19 17:40 POC Urine HCG, Qual Negative rest of labs pending aaox3 lying in bed no acute distress Assessment: 03/02/19 11:14 withdrawals left eye ecchymosis to allyson-orbital area noted. pt denies of any pain/ discomfort nor blurred vision at this time. Plan: continue detox increase fluids monitor for any vision changes/CARLISLE
[2019-03-02 12:00] LABS: HEMATOCRIT 35.5 % (32.4-45.2); HEMOGLOBIN 11.8 GM/dL (10.7-15.3); MCH 29.6 pg (25.7-33.7); MCHC 33.4 g/dl (32.0-36.0); MEAN CELL VOLUME 88.7 fl (80-96); MEAN PLT VOLUME 8.6 fl (7.5-11.1); PLATELET COUNT 218 K/MM3 (134-434); RDW 14.5 % (11.6-15.6); WHITE BLOOD COUNT 4.9 K/mm3 (4.0-10.0)
[2019-03-02 12:12] LABS: ALBUMIN 3.4 g/dl (3.4-5.0); BILIRUBIN,TOTAL 0.3 mg/dL (0.2-1); BLOOD UREA NITROGEN 14.2 mg/dL (7-18); CALCIUM 8.5 mg/dL (8.5-10.1); CREATININE 0.7 mg/dL (0.55-1.3); POTASSIUM 3.7 mmol/L (3.5-5.1); TOT PROT 5.9 g/dl (6.4-8.2)
[2019-03-02] MEDS ORDERED: PSYLLIUM 5.85 GM PACKET PO SCH (20:15)
[2019-03-02] MEDS: THIAMINE HCL 100 MG TABLET (FP) PO SCH (22:28)
[2019-03-03] MEDS: diazePAM 5 MG TABLET PO SCH ×2 (05:35→18:54)
[2019-03-03] MEDS ORDERED: PSYLLIUM 5.85 GM PACKET PO SCH (07:00)
[2019-03-03] MEDS: BACITRACIN/POLYMYXIN B SULFATE 15 GM TUBE TP SCH ×2 (10:39→22:06)
[2019-03-03] MEDS: PRENATAL VITAMINS W/ FOLIC ACID TABLET (FP) PO SCH (10:40)
[2019-03-03] MEDS: CHLORHEXIDINE GLUCONATE 118 ML MOUTHWASH MM SCH ×2 (10:40→22:04)
[2019-03-03] MEDS: PSYLLIUM 5.85 GM PACKET PO SCH ×2 (10:41→16:40)
--- NOTE | 2019-03-03 11:42 | PN ---
[facility] CIWA - CIWA Score Nausea/Vomitin-No Nausea/No Vomiting Muscle Tremors: 3 Anxiety: 2 Agitation: 3 Paroxysmal Sweats: 2 Orientation: 0-Oriented Tacttile Disturbances: 0-None Auditory Disturbances: 0-None Visual Disturbances: 0-None Headache: 0-None Present CIWA-Ar Total Score: 10 S Progress Note (SOAP) Subjective: chills sweats body aches interrupted sleep Objective: 03/03/19 11:41 Vital Signs Temperature 98.1 F 03/03/19 10:00 Pulse Rate 80 03/03/19 10:00 Respiratory Rate 18 03/03/19 10:00 Blood Pressure 124/73 03/03/19 10:00 O2 Sat by Pulse Oximetry (%) Laboratory Tests 03/01/19 03/02/19 03/02/19 17:40 07:30 07:30 WBC 4.9 RBC 4.00 Hgb 11.8 Hct 35.5 MCV 88.7 MCH 29.6 MCHC 33.4 RDW 14.5 Plt Count 218 MPV 8.6 Sodium 140 Potassium 3.7 Chloride 108 H Carbon Dioxide 25 Anion Gap 7 L BUN 14.2 Creatinine 0.7 Est GFR (CKD-EPI)AfAm 119.58 Est GFR (CKD-EPI)NonAf 103.18 Random Glucose 101 Calcium 8.5 Total Bilirubin 0.3 AST 15 ALT 17 Alkaline Phosphatase 41 L Total Protein 5.9 L Albumin 3.4 POC Urine HCG, Qual Negative RPR Titer 03/02/19 07:30 WBC RBC Hgb Hct MCV MCH MCHC RDW Plt Count MPV Sodium Potassium Chloride Carbon Dioxide Anion Gap BUN Creatinine Est GFR (CKD-EPI)AfAm Est GFR (CKD-EPI)NonAf Random Glucose Calcium Total Bilirubin AST ALT Alkaline Phosphatase Total Protein Albumin POC Urine HCG, Qual RPR Titer Nonreactive labs noted aaox3 ambulating no acute distress Assessment: 03/03/19 11:41 withdrawal sx Plan: continue detox increase fluids
[2019-03-03] MEDS: diazePAM 5 MG TABLET PO PRN (15:18)
[2019-03-03] MEDS: THIAMINE HCL 100 MG TABLET (FP) PO SCH (22:01)
[2019-03-04] MEDS: PSYLLIUM 5.85 GM PACKET PO SCH ×4 (01:40→16:50)
[2019-03-04] MEDS ORDERED: diazePAM 5 MG TABLET PO ONE (06:00)
[2019-03-04] MEDS: BACITRACIN/POLYMYXIN B SULFATE 15 GM TUBE TP SCH (10:40)
[2019-03-04] MEDS: PRENATAL VITAMINS W/ FOLIC ACID TABLET (FP) PO SCH (10:40)
[2019-03-04] MEDS: CHLORHEXIDINE GLUCONATE 118 ML MOUTHWASH MM SCH (10:40)
--- NOTE | 2019-03-04 12:08 | DS ---
[facility] Detox Discharge Summary Admission Date: 03/01/19 Discharge Date: 03/04/19 - History Present History: Alcohol Dependence, Cocaine Dependence - Physical Exam Results Vital Signs: Vital Signs Temperature 98.1 F 03/04/19 09:52 Pulse Rate 69 03/04/19 09:52 Respiratory Rate 16 03/04/19 09:52 Blood Pressure 131/60 03/04/19 09:52 O2 Sat by Pulse Oximetry (%) Pertinent Admission Physical Exam Findings: chills - Treatment Hospital Course: Detox Protocol Followed, Detoxed Safely, Responded well, Discharged Condition Good, Rehab Referral Accepted Patient has Accepted a Rehab Referral to: pt referred to [facility] inpatient rehab - Medication Discharge Medications: Ambulatory Orders Enalapril Maleate [Vasotec -] 5 mg PO DAILY 12/08/18 Acidophilus 7.5 mg PO DAILY 03/01/19 Cholecalciferol (Vitamin D3) [Vitamin D3] 2,000 unit PO DAILY 03/01/19 Vegeta 1 03/01/19 Vitamin B Complex 1 each PO DAILY 03/01/19 Vitamin V-C Forte 1 tablet PO DAILY 03/01/19 - Diagnosis (1) Alcohol dependence with withdrawal Current Visit: Yes Status: Chronic Qualifiers: Complication of substance-induced condition: uncomplicated Qualified Code(s ): F10.230 - Alcohol dependence with withdrawal, uncomplicated (2) High risk sexual behavior Current Visit: No Status: Acute Qualifiers: High risk sexual behavior type: heterosexual Qualified Code(s): Z72.51 - High risk heterosexual behavior (3) History of syncope Current Visit: No Status: Acute (4) Cannabis use disorder, mild, abuse Current Visit: Yes Status: Chronic (5) Celiac disease Current Visit: Yes Status: Chronic (6) Chronic pyelonephritis Current Visit: Yes Status: Chronic (7) Cocaine use disorder Current Visit: Yes Status: Chronic (8) Nicotine dependence Current Visit: Yes Status: Chronic Qualifiers: Nicotine product type: cigarettes Substance use status: uncomplicated Qualified Code(s): F17.210 - Nicotine dependence, cigarettes, uncomplicated - AMA Did Patient Leave Against Medical Advice: No
[2019-03-04 17:12] VITALS: BP 138/84; PULSE 75; TEMP 97.7
== END 2019-03-04 17:35 | disposition other institution (70) | DRG 774 ==
LOC: YASAS 15:29 → Y6N 18:12
PROVIDERS: ADMIT Allergy & Immunology; ATTEND Allergy & Immunology
PROC: HZ2ZZZZ Detoxification Services for Substance Abuse Treatment (ICD-10-PCS; principal; 2019-03-01)
DX: F10.230 Alcohol dependence with withdrawal, uncomplicated (principal); F14.20 Cocaine dependence, uncomplicated; F12.20 Cannabis dependence, uncomplicated; F17.210 Nicotine dependence, cigarettes, uncomplicated; N11.8 Other chronic tubulo-interstitial nephritis; K90.0 Celiac disease; Z72.51 High risk heterosexual behavior; Z88.1 Allergy status to other antibiotic agents; Z88.6 Allergy status to analgesic agent; Z91.02 Food additives allergy status
CPT/HCPCS: 36415; 80053; 81025; 85027; 86593

== ENCOUNTER 2019-03-04 17:58 | Inpatient (IN) | payer OTHER ==
--- NOTE | 2019-03-04 15:27 | HP ---
[facility] Rehab Assess/Revision - Admission History Ad[facility] to [facility] - Findings Detox History & Physical reviewed: Yes Concur with findings: Yes Inpatient Rehab Admission - Rehab Decision to Admit Inpatient rehab admission?: Yes - Initial Determination Are CD services needed?: Yes Free of communicable disease: Yes Not in need of hospitalization: Yes - Rehab Admission Criteria Previous failed treatment: Yes Poor recovery environment: Yes Comorbidities: Yes Lacks judgement: Yes Patient is meeting Inpatient Rehab admission criteria:: Yes
[~2019-03-04 17:58] MED LIST: ACETAMINOPHEN 325 MG TABLET (FP) PO PRN; LOPERAMIDE HCL 2 MG CAPSULE PO PRN; MAG HYDROX/AL HYDROX/SIMETH 30 ML UNIT-DOSE CUP PO PRN; MAGNESIUM CITRATE 300 ML BOTTLE PO PRN; MAGNESIUM HYDROX 2400MG/30ML ORAL SUSPENSION 30 ML CUP PO PRN; MENTHOL/PHENOL 1 EACH UD MM PRN; NICOTINE POLACRILEX 4 MG GUM BUC PRN; P-EPHED 60MG/TRIPROLIDI 2.5MG TABLET PO PRN; guaiFENesin 200 MG/10 ML 10 ML UNIT-DOSE CUPS PO PRN
[2019-03-04] MEDS ORDERED: MELATONIN 5 MG TABLETS PO PRN (22:00)
[2019-03-04] MEDS: THIAMINE HCL 100 MG TABLET (FP) PO SCH (22:36)
[2019-03-04] MEDS: hydrOXYzine PAMOATE 50 MG CAPSULE (FP) PO PRN (22:44)
[2019-03-05] MEDS: PRENATAL VITAMINS W/ FOLIC ACID TABLET (FP) PO SCH (10:40)
[2019-03-05] MEDS: NICOTINE 21 MG/24 HOURS TOPICAL PATCH TD SCH (10:40)
[2019-03-05] MEDS: THIAMINE HCL 100 MG TABLET (FP) PO SCH (21:39)
[2019-03-06] MEDS: PRENATAL VITAMINS W/ FOLIC ACID TABLET (FP) PO SCH (09:52)
[2019-03-06] MEDS: NICOTINE 21 MG/24 HOURS TOPICAL PATCH TD SCH (09:53)
[2019-03-06] MEDS: hydrOXYzine PAMOATE 50 MG CAPSULE (FP) PO PRN ×2 (15:47→21:36)
[2019-03-06] MEDS: THIAMINE HCL 100 MG TABLET (FP) PO SCH (21:35)
[2019-03-07] MEDS: NICOTINE 21 MG/24 HOURS TOPICAL PATCH TD SCH (10:38)
[2019-03-07] MEDS: PRENATAL VITAMINS W/ FOLIC ACID TABLET (FP) PO SCH (10:38)
[2019-03-07] MEDS: CHLORHEXIDINE GLUCONATE 118 ML MOUTHWASH MM SCH ×2 (10:38→21:03)
[2019-03-07] MEDS: PSYLLIUM 5.85 GM PACKET PO SCH ×2 (11:34→17:13)
[2019-03-07] MEDS ORDERED: PT OWN MED DRAWER 7, Y5N ONE (20:01)
[2019-03-07] MEDS: THIAMINE HCL 100 MG TABLET (FP) PO SCH (21:04)
[2019-03-08] MEDS ORDERED: PT OWN MED DRAWER 7, Y5N ONE (03:15)
[2019-03-08] MEDS: PSYLLIUM 5.85 GM PACKET PO SCH ×2 (06:39→11:33)
[2019-03-08 07:00] VITALS: TEMP 97.3
[2019-03-08] MEDS ORDERED: CHOLECALCIFEROL (VIT D3) 400 UNIT (10 MCG) TABLET PO SCH (11:00)
[2019-03-08] MEDS ORDERED: amLODIPine BESYLATE 5 MG TABLET (FP) PO SCH (11:00)
--- NOTE | 2019-03-08 11:27 | DS ---
[facility] Rehab Discharge Summary - [facility] Rehab Discharge Summary Admission Date: 03/04/19 Discharge Date: 03/09/19 - History Present History: Alcohol dependence Additional Comments: patient is requesting to spend the next 10 days in bed because of her fall. She only wanted to attend mandatory groups. However, she completed detox. There is no indication that the patient was on bedrest and excused from groups while in detox. Nurses report that patient was ambulating in rehab during the weekend. Physical exam indicates she is able to attend groups. The patient has chosen to discontinue substance abuse rehab. Pertinent Past History: pt reports 1 l vodka/ day, + blackout and fall , was found by passer by who called EMS, pt taken to [facility], CT report + nasal frx , left inferior orbital floor chronic frx pt agreeable to f/up w/ ophtalmology as outpatient. Pt states had fall 2 years ago and was told she had a nasal frx and orbital frx at that time and the pt did not f/up. reports daily use x 2 years, denies seizures, + multiple falls pmhx : HDL lmp 02/08/19 - Discharge Physical Exam Vital Signs: Vital Signs Temperature 97.3 F L 03/08/19 07:00 Pulse Rate 61 03/08/19 07:00 Respiratory Rate 18 03/08/19 07:00 Blood Pressure 134/87 03/08/19 07:00 O2 Sat by Pulse Oximetry (%) Pertinent Admission Physical Exam Findings: General Appearance: No apparent distress, resting comfortably in bed HEENTM: Normocephalic Hearing grossly Normal, Normal Voice, PERRLA, left periorbital abrasion, ecchymosis -left eye) Respiratory: Lungs Clear, Neck: Supple, Trachea in good position Cardiology: S1, S2 Abdominal: +BS, Non Tender, Soft, Protuberent Musculoskeletal: full range of Motion, Gait Steady, full weight bearing Neurological: Fully Oriented, Alert, Motor Strength 5/5 bilaterally, Integumentary: superficial abrasion left zygoma and left frontal large allyson- orbital ecchymosis left eye - Treatment Discharge Condition: Discharge condition good (medically stable for discharge.Patient will go to [facility] for aftercare and [facility].) Hospital Course: Patient completed detox and was transferred to rehab. In rehab, she refused to attend groups. She was adherent only to her medication regimen. - Medication Discharge Medications: Ambulatory Orders Acidophilus 7.5 mg PO DAILY 03/01/19 Vegeta 1 03/01/19 Vitamin V-C Forte 1 tablet PO DAILY 03/01/19 Cholecalciferol (Vitamin D3) [Vitamin D3] 2,000 unit PO DAILY #14 capsule Enalapril Maleate [Vasotec -] 5 mg PO DAILY #14 tablet 03/08/19 Psyllium [Metamucil (Sugar-Free) -] 1 packet PO TID #20 packet 03/08/19 Vitamin B Complex 1 each PO DAILY #14 tablet 03/08/19 - Medication-Assisted Treatment (MAT) Medication-Assisted Treatment (MAT): No - Discharge Instructions Diet, activity, other medical instructions: Diet: as tolerated Activity: as tolerated Other medical instructions: Please keep aftercare appointment and make an appointment with PCP within 2 weeks of discharge. - Diagnosis (1) Alcohol dependence with withdrawal Status: Chronic Qualifiers: Complication of substance-induced condition: uncomplicated Qualified Code(s ): F10.230 - Alcohol dependence with withdrawal, uncomplicated - Follow-up Referral Minutes to complete discharge: 20 - AMA Did Patient Leave Against Medical Advice: No
[2019-03-08] MEDS: CHLORHEXIDINE GLUCONATE 118 ML MOUTHWASH MM SCH (11:28)
[2019-03-08] MEDS: PRENATAL VITAMINS W/ FOLIC ACID TABLET (FP) PO SCH (11:28)
[2019-03-08] MEDS: NICOTINE 21 MG/24 HOURS TOPICAL PATCH TD SCH (11:33)
[2019-03-08 11:34] VITALS: BP 129/88; PULSE 80
[2019-03-08] MEDS ORDERED: ENALAPRIL MALEATE 5 MG TABLET (FP) PO SCH (11:45)
== END 2019-03-08 12:20 | disposition home or self-care (01) | DRG 772 ==
LOC: YASAS 17:58 → Y3E 17:59
PROVIDERS: ADMIT Neuromusculoskeletal Medicine & OMM; ATTEND Neuromusculoskeletal Medicine & OMM
PROC: HZ42ZZZ Group Counseling for Substance Abuse Treatment, Cognitive-Behavioral (ICD-10-PCS; principal; 2019-03-04)
DX: F10.20 Alcohol dependence, uncomplicated (principal); E78.5 Hyperlipidemia, unspecified; Z87.81 Personal history of (healed) traumatic fracture; Z91.81 History of falling